=== PATIENT | female | born 1980 | race Caucasian/White ===

== ENCOUNTER 2024-08-07 18:36 | Inpatient (IN) | payer MEDICAID, OTHER, SELFPAY ==
[2024-08-07 18:58] VITALS: BMI 24.8
[2024-08-07 19:06] VITALS: BP 114/95; PULSE 85; RESP 16; TEMP 36.7; O2SAT 100
[2024-08-07 20:00] VITALS: BP 114/95; PULSE 85; RESP 16; TEMP 36.7; O2SAT 99
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
[2024-08-08 08:00] VITALS: BP 109/68; PULSE 92; RESP 16; TEMP 36.6; O2SAT 97
--- NOTE | 2024-08-08 09:24 | P.CONHOSP_ITS ---
History of Present Illness Data of Consult Service Date: 08/08/24 Requesting physician: Pb Aparicio Primary Care Provider: Unknown Physician HPI Reason for consult: medical consult 43 yo f admitted to adult [facility] for delusions and paranoia with a hx of brucellosis and lyme. 2 poisonings by the [employer] in the past year, last was in November . currently being treated for brucellosis and lyme with rifampin and doxy. reports leg cramps which are alleviated with PO magnesium. also mag helps with her chronic constipation. right ear feels blocked with cerumen, states she as given gtts at [facility] but never used them. requesting magnesium supplement and ear drops. Review of Systems 2 Constitutional: Constitutional: Denies body ache(s), Denies fatigue, Denies fever(s) and Denies headache(s) Eyes: Eyes: Denies blurry vision and Denies loss of vision ENT: Denies dizziness, Denies headache(s) and Reports hearing loss (right ear ?cerumen impaction) Cardiovascular: Cardiovascular: Denies chest pain, Denies leg edema and Denies dyspnea Respiratory: Respiratory: Denies cough and Denies dyspnea Gastrointestinal: Gastrointestinal: Denies constipation, Denies diarrhea, Denies nausea and Denies vomiting Genitourinary: Genitourinary: Denies dysuria Musculoskeletal: Comments: LLE pain - chronic Integumentary/Breasts: Skin/Breast: Denies rash Neurologic: Denies dizziness, Denies headache(s) and Denies loss of vision Endocrine: Endocrine: Denies fatigue PMFSH Functional capacity: independent ambulation Social History Household Members: Unknown / Unable to assess Housing: Other Housing Other:: retirement Do you presently have visiting nurse or other home services: No Patient Tobacco Use Status: Never used Tobacco Use of substances other than those prescribed or required for medical reasons: No Advance Directives: No Advance Directives Information Provided: No Do you have a plan to hurt others: No Plan Recently lost weight without trying: No How much weight loss: Not applicable Eating poorly because of decreased appetite: No Nutrition screen score: 0 Nutrition Risks: No Nutritional Risk : No Poor oral hygiene: No Narrative: denies any substance use, etoh, IVDU, marijuanna Meds Allergies Allergy/AdvReac Type Severity Reaction Status Date / Time No Known Allergies Allergy Verified 08/07/24 22:14 Active Medications: Current Medications Acetaminophen (Acetaminophen 325 Mg Tablet) 650 mg PO Q6H PRN PRN Reason: Headache/Pain Mild Scale (1-3) Al Hydroxide/Mg Hydroxide (Magnesium Hydrox/Alum Hydrox 30 Ml Oral.Susp) 30 ml PO Q6H PRN PRN Reason: Heartburn/Nausea Doxycycline Monohydrate (Doxycycline Monohydrate 100 Mg Capsule) 100 mg PO BID JUANA Hydroxyzine HCl (Hydroxyzine Hcl 25 Mg Tablet) 25 mg PO Q6H PRN PRN Reason: Anxiety Magnesium Hydroxide (Milk Of Magnesia 30 Ml Oral.Susp) 30 ml PO DAILY PRN PRN Reason: Constipation Rifampin (Rifampin 300 Mg Capsule) 900 mg PO DAILY JUANA Risperidone (Risperidone 2 Mg Tablet) 2 mg PO BEDTIME JUANA Last Admin: 08/07/24 23:30 Dose: Not Given Trazodone HCl (Trazodone Hcl 50 Mg Tablet) 50 mg PO BEDTIME MRX1 PRN PRN Reason: Insomnia Home Medications ?Medication ?Instructions ?Recorded ?Confirmed ?Last Taken ?Type doxycycline hyclate 100 mg capsule 100 mg PO BID 08/07/24 08/07/24 Unknown History rifampin 300 mg capsule 900 mg PO DAILY 08/07/24 08/07/24 Unknown History risperidone 2 mg tablet (Risperdal) 2 mg PO BEDTIME 08/07/24 08/07/24 Unknown History Physical Exam 2 Vital Signs and Narrative: Vital Signs: Last Vital Signs Temp 98.1 F 08/07/24 20:00 Pulse 85 08/07/24 20:00 Resp 16 08/07/24 20:00 BP 114/95 H 08/07/24 20:00 Pulse Ox 99 08/07/24 20:00 O2 Del Method Room Air 08/07/24 20:00 BMI result Body Mass Index 24.8 const: awake and oriented x3, NAD, well nourished, discheveled appearance ENT: otoscope not working cardio: RRR, no M resp: CTA bilat neuro: CN II- XII intact, pupils ERRL, normal sensation/motor, normal gait msk: ambulates normal, LE normal, normal strength and sensation bilaterally psych: flight of thoughts, paranoid ideations Results Labs 08/08/24 09:27 Assessment and Plan (1) Routine medical exam: Status: Acute Plan 43 yo f admitted to adult psych for delusions and paranoia with a hx of brucellosis and lyme mood d/o - plan per psych brucellosis/lyme - continue rifampin and doxycycline cerumen impaction - otoscope not working but hx of impaction - debrox gtts right ear BID x4 days chronic constipation - PO mag supplement 400mg QD per pt request Thank you for allowing me to participate in the pt's care. Please reach out to the medical team with any questions or concerns.
[2024-08-08 09:51] LABS: Alanine Aminotransferase 13 U/L (0-31); Albumin Level 4.1 g/dL (3.5-5.0); Alkaline Phosphatase 60 U/L (39-117); Anion Gap 11 (12-20); Aspartate Amino Transferase 13 U/L (5-31); Bilirubin Total 0.2 mg/dL (0.0-1.0); Blood Urea Nitrogen 10 mg/dL (9-16); Calcium 9.1 mg/dL (8.4-10.2); Carbon Dioxide 23 mmol/L (22-29); Chloride 108 mmol/L (96-108); Cholesterol 241 mg/dL (<200); Estimated Glomerular Filt Rate > 60; Glucose Fasting 122 mg/dL (60-99); HDL Cholesterol 72 mg/dL (>40); LDL Cholesterol Calculated 150 mg/dL (<100); Potassium 3.8 mmol/L (3.3-5.1); Sodium 138 mmol/L (135-145); Total Protein 7.5 g/dL (6.5-8.0); Triglycerides 96 mg/dL (<150)
[2024-08-08] MEDS: rifAMPin 300 MG CAPSULE 900 MG PO (09:56)
[2024-08-08] MEDS: Magnesium Oxide 400 MG TABLET PO (11:11)
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
[2024-08-08] MEDS: Ferrous Sulfate 324 MG TABLET.DR PO (16:08)
[2024-08-08] MEDS: Carbamide Peroxide 6.5% Otic 15 ML DRPBTL 5 DROP EAR-RIGHT ×2 (16:25→23:00)
--- NOTE | 2024-08-08 17:27 | PC.NURSE ---
Tw attempted on several occasions to obtain signatures for Notice of Rights, ROIs, and 12B information. Offered a [place] registered nurse cardiac however pt did not wish to discuss these documents. Pt said I'm going to wait until I talk to the doctor on Sunday .
--- NOTE | 2024-08-08 18:43 | PC.NURSE ---
This RN attempted to collect a urine sample from pt on several occasions however pt insisted that she does not need to use the bathroom yet. Tried again at 15:50 and 18:30 and pt still hadn't done it. Pt said I don't understand why I have to do this. I am not . I was bleeding last week. Explained to pt that a result is important for continuing her care her/figuring out medications. Pt said she will try again after diiner.
[2024-08-08 20:08] VITALS: BP 115/68; PULSE 93; TEMP 36.9; O2SAT 99
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
[2024-08-08] MEDS: fluPHENAZine HCl 5 MG TABLET PO (23:00)
[2024-08-08] MEDS: diphenhydrAMINE HCL 25 MG CAPSULE 50 MG PO (23:00)
[2024-08-09] MEDS: Magnesium Oxide 400 MG TABLET 800 MG PO (09:11)
[2024-08-09] MEDS: Carbamide Peroxide 6.5% Otic 15 ML DRPBTL 5 DROP EAR-RIGHT ×2 (09:32→22:15)
[2024-08-09 10:02] LABS: UPreg QC Valid YES; Urine Pregnancy NEGATIVE (NEGATIVE)
--- NOTE | 2024-08-09 10:08 | HO.PSYCHPN ---
Subjective Subjective Date of Service: 08/09/24 Reason For Visit: si Subjective Notes: Section 12B Interim History: Reviewed with Dr. Jonas. Keeping to self. Per nursing staff, patient slept 6 hours last night. Patient reports feeling okay today; patient stated, I do not need anything. I don't have depression . Patient reports she plans on showering today. Denies SI/HI/VH/AH. Medication Compliance: Yes Side effects from medications: No Review of Systems Constitutional: Reports as per HPI Eyes: Reports as per HPI Reports as per HPI Cardiovascular: Reports as per HPI Respiratory: Reports as per HPI Gastrointestinal: Reports as per HPI Genitourinary: Reports as per HPI Musculoskeletal: Reports as per HPI Skin/Breast: Reports as per HPI Reports as per HPI Psychiatric: Reports as per HPI Endocrine: Reports as per HPI Hematologic/Lymphatic: Reports as per HPI Allergic/Immunologic: Reports as per HPI Mental Status Exam Mental Status Exam Patient Orientation: Person, Place and Situation Level of Consciousness: Awake and Alert Patient Behavior: Cooperative and Passive Mood Description: Calm Affect Description: Blunted Ability to Follow Directions: Good Speech Pattern: Clear Thought Process: Intact Diagnostics Vital Signs (24Hr): Vital Signs - 24 hr 08/08/24 20:08 Temperature 98.5 F Pulse Rate 93 Blood Pressure 115/68 Pulse Oximetry 99 Oxygen Delivery Method Room Air BMI result Body Mass Index 24.8 Labs 08/08/24 09:27 Labs: Laboratory Results - last 48 hr 08/08/24 08/09/24 09:27 09:47 Sodium 138 Potassium 3.8 Chloride 108 Carbon Dioxide 23 Anion Gap 11 L BUN 10 Creatinine 0.74 Estim Creat Clear Calc 90.0 Estimated GFR > 60 Fasting Glucose 122 H Calcium 9.1 Total Bilirubin 0.2 AST 13 ALT 13 Alkaline Phosphatase 60 Total Protein 7.5 Albumin 4.1 Triglycerides 96 Cholesterol 241 H LDL Cholesterol, Calc 150 H HDL Cholesterol 72 Urine Test NEGATIVE Medications Medications Current Medications Acetaminophen (Acetaminophen 325 Mg Tablet) 650 mg PO Q6H PRN PRN Reason: Headache/Pain Mild Scale (1-3) Al Hydroxide/Mg Hydroxide (Magnesium Hydrox/Alum Hydrox 30 Ml Oral.Susp) 30 ml PO Q6H PRN PRN Reason: Heartburn/Nausea Carbamide Peroxide (Carbamide Peroxide 6.5% Otic 15 Ml Drpbtl) 5 drop EAR-RIGHT BID JUANA Stop: 08/12/24 09:59 Last Admin: 08/09/24 09:32 Dose: 5 drop Diphenhydramine HCl (Diphenhydramine Hcl 25 Mg Capsule) 50 mg PO BEDTIME [facility] Last Admin: 08/08/24 23:00 Dose: 50 mg Ferrous Sulfate (Ferrous Sulfate 324 Mg Tablet.Dr) 324 mg PO TIDWM [facility] Last Admin: 08/08/24 16:08 Dose: 324 mg Fluphenazine HCl (Fluphenazine Hcl 5 Mg Tablet) 5 mg PO BEDTIME [facility] Last Admin: 08/08/24 23:00 Dose: 5 mg Hydroxyzine HCl (Hydroxyzine Hcl 25 Mg Tablet) 25 mg PO Q6H PRN PRN Reason: Anxiety Magnesium Hydroxide (Milk Of Magnesia 30 Ml Oral.Susp) 30 ml PO DAILY PRN PRN Reason: Constipation Magnesium Oxide (Magnesium Oxide 400 Mg Tablet) 800 mg PO DAILY [facility] Last Admin: 08/09/24 09:11 Dose: 800 mg Trazodone HCl (Trazodone Hcl 50 Mg Tablet) 50 mg PO BEDTIME MRX1 PRN PRN Reason: Insomnia Allergies Allergies Allergy/AdvReac Type Severity Reaction Status Date / Time No Known Allergies Allergy Verified 08/07/24 22:14 Assessment & Plan Assessment & Plan (1) Psychotic disorder: Status: Acute Code(s): F29 - Unspecified psychosis not due to a substance or known physiological condition Plan I dont see any signs of brucellosis at this time. She seems adequately treated,rarely recurs. Stop Doxycycline and Rifampin. May check abdominal CT or u/s if pain. consider HIV and Hepatitis C testing. 08/09: Continue current treatment plan. Patient educated on: medication risk/benefits Reason for continued inpatient stay Substantial Risk for: med/psych decompensation Time Spent With Patient Time: Total time managing care of this patient today _20___ minutes.
[2024-08-09] MEDS: Ferrous Sulfate 324 MG TABLET.DR PO (16:27)
[2024-08-09 19:39] VITALS: BP 129/76; PULSE 93; RESP 16; TEMP 37.3; O2SAT 100
[2024-08-09] MEDS: diphenhydrAMINE HCL 25 MG CAPSULE 50 MG PO (22:14)
[2024-08-09] MEDS: fluPHENAZine HCl 5 MG TABLET PO (22:14)
--- NOTE | 2024-08-10 08:59 | P.PNPSI_ITS ---
Subjective Subjective Date of Service: 08/10/24 Reason For Visit: si Subjective Notes: Section 12B Interim History: Reviewed with Dr. Jonas. Keeping to self. Per nursing staff, slept 5 hours last night. Guarded. Patient reports feeling okay today; patient stated, I want to see my own doctor. Emotionally I feel fine . Medication Compliance: Yes Side effects from medications: No Attending Groups: No Review of Systems Constitutional: Reports as per HPI Eyes: Reports as per HPI Reports as per HPI Cardiovascular: Reports as per HPI Respiratory: Reports as per HPI Gastrointestinal: Reports as per HPI Musculoskeletal: Reports as per HPI Skin/Breast: Reports as per HPI Reports as per HPI Psychiatric: Reports as per HPI Endocrine: Reports as per HPI Hematologic/Lymphatic: Reports as per HPI Allergic/Immunologic: Reports as per HPI Mental Status Exam Mental Status Exam Patient Orientation: Person, Place and Situation Level of Consciousness: Awake and Alert Patient Behavior: Cooperative and Passive Mood Description: Calm Affect Description: Blunted Ability to Follow Directions: Good Speech Pattern: Clear Diagnostics Vital Signs (24Hr): Vital Signs - 24 hr 08/09/24 19:39 Temperature 99.1 F Pulse Rate 93 Respiratory Rate 16 Blood Pressure 129/76 Pulse Oximetry 100 Oxygen Delivery Method Room Air BMI result Body Mass Index 24.8 Labs 08/08/24 09:27 Labs: Laboratory Results - last 48 hr 08/08/24 08/09/24 09:27 09:47 Sodium 138 Potassium 3.8 Chloride 108 Carbon Dioxide 23 Anion Gap 11 L BUN 10 Creatinine 0.74 Estim Creat Clear Calc 90.0 Estimated GFR > 60 Fasting Glucose 122 H Calcium 9.1 Total Bilirubin 0.2 AST 13 ALT 13 Alkaline Phosphatase 60 Total Protein 7.5 Albumin 4.1 Triglycerides 96 Cholesterol 241 H LDL Cholesterol, Calc 150 H HDL Cholesterol 72 Urine Test NEGATIVE Medications Medications Current Medications Acetaminophen (Acetaminophen 325 Mg Tablet) 650 mg PO Q6H PRN PRN Reason: Headache/Pain Mild Scale (1-3) Al Hydroxide/Mg Hydroxide (Magnesium Hydrox/Alum Hydrox 30 Ml Oral.Susp) 30 ml PO Q6H PRN PRN Reason: Heartburn/Nausea Carbamide Peroxide (Carbamide Peroxide 6.5% Otic 15 Ml Drpbtl) 5 drop EAR-RIGHT BID JUANA Stop: 08/12/24 09:59 Last Admin: 08/09/24 22:15 Dose: 5 drop Diphenhydramine HCl (Diphenhydramine Hcl 25 Mg Capsule) 50 mg PO BEDTIME [facility] Last Admin: 08/09/24 22:14 Dose: 50 mg Ferrous Sulfate (Ferrous Sulfate 324 Mg Tablet.Dr) 324 mg PO TIDWM [facility] Last Admin: 08/09/24 16:27 Dose: 324 mg Fluphenazine HCl (Fluphenazine Hcl 5 Mg Tablet) 5 mg PO BEDTIME [facility] Last Admin: 08/09/24 22:14 Dose: 5 mg Hydroxyzine HCl (Hydroxyzine Hcl 25 Mg Tablet) 25 mg PO Q6H PRN PRN Reason: Anxiety Magnesium Hydroxide (Milk Of Magnesia 30 Ml Oral.Susp) 30 ml PO DAILY PRN PRN Reason: Constipation Magnesium Oxide (Magnesium Oxide 400 Mg Tablet) 800 mg PO DAILY [facility] Last Admin: 08/09/24 09:11 Dose: 800 mg Trazodone HCl (Trazodone Hcl 50 Mg Tablet) 50 mg PO BEDTIME MRX1 PRN PRN Reason: Insomnia Allergies Allergies Allergy/AdvReac Type Severity Reaction Status Date / Time No Known Allergies Allergy Verified 08/07/24 22:14 Assessment & Plan Assessment & Plan (1) Psychotic disorder: Status: Acute Code(s): F29 - Unspecified psychosis not due to a substance or known physiological condition Plan I dont see any signs of brucellosis at this time. She seems adequately treated,rarely recurs. Stop Doxycycline and Rifampin. May check abdominal CT or u/s if pain. consider HIV and Hepatitis C testing. 08/09: Continue current treatment plan. 08/10: Continue current treatment plan. Continues guarded. Patient educated on: medication risk/benefits Reason for continued inpatient stay Substantial Risk for: med/psych decompensation Time Spent With Patient Time: Total time managing care of this patient today _20___ minutes.
[2024-08-10] MEDS: Magnesium Oxide 400 MG TABLET 800 MG PO (09:22)
[2024-08-10] MEDS: Carbamide Peroxide 6.5% Otic 15 ML DRPBTL 5 DROP EAR-RIGHT ×2 (10:27→20:17)
[2024-08-10] MEDS: Ferrous Sulfate 324 MG TABLET.DR PO ×2 (10:32→20:12)
[2024-08-10 19:10] VITALS: BP 121/75; PULSE 100; RESP 16; TEMP 36.9; O2SAT 100
[2024-08-10] MEDS: fluPHENAZine HCl 5 MG TABLET PO (20:12)
[2024-08-10] MEDS: diphenhydrAMINE HCL 25 MG CAPSULE 50 MG PO (20:12)
[2024-08-11 07:46] VITALS: BP 106/62; PULSE 91; RESP 16; TEMP 38.2; O2SAT 98
[2024-08-11] MEDS: Magnesium Oxide 400 MG TABLET 800 MG PO (08:15)
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
[2024-08-11] MEDS: Ferrous Sulfate 324 MG TABLET.DR PO ×2 (10:38→12:57)
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
== END 2024-08-11 14:25 | disposition home or self-care (01) | DRG 751 ==
PROVIDERS: Social Worker; Admitting Provider Psychiatry & Neurology Psychiatry; Visit Provider Psychiatry & Neurology Psychiatry
DX: F29 Unspecified psychosis not due to a substance or known physiological condition (principal); H61.21 Impacted cerumen, right ear; K59.09 Other constipation; Z86.19 Personal history of other infectious and parasitic diseases; Z79.899 Other long term (current) drug therapy
CPT/HCPCS: 36415; 80053; 80061; 81025; 99222

== ENCOUNTER → 2024-08-07 18:36 | Outpatient (BNV) | payer SELFPAY | PROVIDERS: Admitting Provider Psychiatry & Neurology Psychiatry; Visit Provider Psychiatry & Neurology Neurology | DX: R42 Dizziness and giddiness (principal) | CPT/HCPCS: 99222 ==

== ENCOUNTER → 2024-08-07 18:36 | Outpatient (BNV) | payer MEDICAID, SELFPAY | PROVIDERS: Admitting Provider Psychiatry & Neurology Psychiatry; Visit Provider Psychiatry & Neurology Psychiatry | DX: F29 Unspecified psychosis not due to a substance or known physiological condition (principal) | CPT/HCPCS: 99223; 99231; 99239 ==

== ENCOUNTER → 2024-08-07 18:36 | Outpatient (BNV) | payer SELFPAY | PROVIDERS: Admitting Provider Psychiatry & Neurology Psychiatry; Visit Provider Internal Medicine | DX: F29 Unspecified psychosis not due to a substance or known physiological condition (principal) | CPT/HCPCS: 99222 ==